=== PATIENT | female | born 1965 | race Hispanic/Latino ===

== ENCOUNTER 2023-01-17 11:19 | Observation (INO) | payer SELFPAY ==
[2023-01-17 12:17] LABS: #Basophils 0.1 thou/uL (0.0-0.2); #Eosinphils 0.2 thou/uL (0.0-0.7); #Monocytes 0.4 thou/uL (0.11-0.59); #Neutrophils 5.5 thou/uL (1.40-6.50); %Eosinophils 2.1 % (0.0-10.0); %Lymphocytes 23.9 % (21.0-51.0); %Monocytes 5.1 % (0.0-10.0); %Neutrophils 67.7 % (42.0-75.0); Hemoglobin 10.8 g/dL (12.0-16.0); Mean Corpuscular HGB CONC 34.8 g/dL (32.0-36.0); Mean Corpuscular Hemoglobin 27.1 pg (27.0-31.0); Mean Corpuscular Volume 77.9 fl (78.0-98.0); Mean Platelet Volume 10.6 fL (7.4-10.4); Platelet Count 286 10x3/uL (130-400); Red Blood Cell (RBC) Count 3.98 mill/uL (4.20-5.40); White Blood Cell (WBC) Count 8.2 10x3/uL (4.8-10.8)
[2023-01-17 12:48] LABS: Troponin I Less than 0.010 ng/mL (< 0.028)
[2023-01-17 12:51] LABS: ALT (SGPT) 14 U/L (8-55); AST (SGOT) 19 U/L (5-34); Albumin 3.4 g/dL (3.5-5.0); Alkaline Phosphatase 72 U/L (40-110); Anion Gap 13 mmol/L (10-20); BUN (Urea Nitrogen) 26 mg/dL (9.8-20.1); Bilirubin, Total 0.4 mg/dL (0.2-1.2); Calc. Creatinine Clearance 0 mL/min (70-130); Calcium 8.6 mg/dL (7.8-10.44); Carbon Dioxide 23 mmol/L (22-29); Chloride 109 mmol/L (98-107); Estimated GFR 51; Globulin 2.8 g/dL (2.4-3.5); Glucose 198 mg/dL (70-105); Lipase 16 U/L (8-78); Potassium 3.8 mmol/L (3.5-5.1); Protein, Total 6.2 g/dL (6.0-8.3); Sodium 141 mmol/L (136-145)
[2023-01-17] MEDS ORDERED: Amlodipine 5 MG TAB ONE (13:34)
[2023-01-17] MEDS ORDERED: Nitroglycerin 2% Ointment 1 INCH/1 GM Packet ONE (13:35)
[2023-01-17] MEDS ORDERED: hydrALAZINE 20 MG/ML VIAL ONE (13:35)
[2023-01-17] MEDS ORDERED: Aspirin Chewable 81 MG TAB ONE (13:35)
[2023-01-17] MEDS ORDERED: Dextrose 5% in Water 1,000 ML IV PRN (13:49)
[2023-01-17] MEDS ORDERED: Glucagon 1 MG/ML KIT IM PRN (13:49)
[2023-01-17] MEDS ORDERED: Dextrose 50% Abboject 50 ML SYRINGE SLOW IVP PRN (13:49)
[2023-01-17] MEDS ORDERED: HumaLOG 300 UNITS/3 ML VIAL SC PRN (13:49)
[2023-01-17] MEDS ORDERED: Ondansetron PF 4 MG/2 ML Vial IVP PRN (13:54)
[2023-01-17] MEDS ORDERED: Acetaminophen 325 MG TAB PO PRN (13:54)
[2023-01-17] MEDS ORDERED: Lisinopril 10 MG TAB PO SCH (14:00)
[2023-01-17] MEDS ORDERED: Lisinopril 10 MG TAB ONE (15:22)
[2023-01-17 15:29] LABS: Bacteria/HPF None Seen HPF (None Seen); Bilirubin Negative (Negative); Blood, Urine Negative (Negative); CAUTI Indications for Culture Pelvic or flank pain; Clarity Clear (Clear); Glucose, Urine (Dipstick) 150 mg/dL (Negative); Ketone, Urine Negative (Negative); Leukocyte Negative Leu/uL (Negative); Nitrite Negative (Negative); Protein, Urine (Dipstick) 300 mg/dL (Neg-Trace); RBC/HPF 0-3 HPF (0-3); Specific Gravity, Urine 1.011 (1.002-1.036); Squamous Epithelial 0-3 HPF (0-3); Urobilinogen Normal mg/dL (Less than 2); WBC/HPF 0-3 HPF (0-3)
[2023-01-17 15:31] LABS: Urine Culture Reflex No No
[2023-01-17 15:40] LABS: Troponin I Less than 0.010 ng/mL (< 0.028)
[2023-01-17] MEDS: Heparin 5,000 UNITS/ML VIAL SC SCH ×2 (16:25→21:27)
[2023-01-17 18:44] LABS: Troponin I Less than 0.010 ng/mL (< 0.028)
[2023-01-17 20:25] VITALS: BMI 23.8
[2023-01-17] MEDS ORDERED: Atorvastatin Calcium 40 MG TAB PO SCH (21:00)
[2023-01-17] MEDS: Metoprolol Tartrate 25 MG TAB PO SCH (21:27)
[2023-01-17] MEDS: Isosorbide Dinitrate 20 MG TAB PO SCH (21:27)
[2023-01-18 05:05] LABS: #Basophils 0.1 thou/uL (0.0-0.2); #Eosinphils 0.2 thou/uL (0.0-0.7); #Monocytes 0.5 thou/uL (0.11-0.59); #Neutrophils 4.8 thou/uL (1.40-6.50); %Eosinophils 2.5 % (0.0-10.0); %Lymphocytes 23.9 % (21.0-51.0); %Monocytes 6.3 % (0.0-10.0); Hematocrit 25.8 % (36.0-47.0); Hemoglobin 8.8 g/dL (12.0-16.0); Mean Corpuscular HGB CONC 34.1 g/dL (32.0-36.0); Mean Corpuscular Hemoglobin 26.4 pg (27.0-31.0); Mean Corpuscular Volume 77.5 fl (78.0-98.0); Mean Platelet Volume 10.9 fL (7.4-10.4); Platelet Count 257 10x3/uL (130-400); RBC Distribution Width 14.1 % (11.5-14.5); Red Blood Cell (RBC) Count 3.33 mill/uL (4.20-5.40); White Blood Cell (WBC) Count 7.3 10x3/uL (4.8-10.8)
[2023-01-18 05:14] LABS: Anion Gap 13 mmol/L (10-20); BUN (Urea Nitrogen) 29 mg/dL (9.8-20.1); Calc. Creatinine Clearance 44 mL/min (70-130); Carbon Dioxide 21 mmol/L (22-29); Chloride 112 mmol/L (98-107); Estimated GFR 46; Glucose 136 mg/dL (70-105); Potassium 3.4 mmol/L (3.5-5.1); Sodium 143 mmol/L (136-145)
[2023-01-18] MEDS ORDERED: Potassium Chloride 20 MEQ TAB PO SCH (08:45)
[2023-01-18] MEDS ORDERED: Amlodipine 10 MG TAB PO SCH (09:00)
[2023-01-18] MEDS ORDERED: Lisinopril 10 MG TAB PO SCH (09:00)
[2023-01-18] MEDS ORDERED: Aspirin 81 mg Enteric Coated Tablet PO SCH (09:00)
[2023-01-18] MEDS ORDERED: ADENOSINE 60 MG/20 ML SDV ONE (10:27)
[2023-01-18] MEDS: Furosemide 20 MG TAB PO SCH ×2 (14:08→14:49)
[2023-01-18] MEDS: Isosorbide Dinitrate 20 MG TAB PO SCH (14:08)
[2023-01-18] MEDS: Heparin 5,000 UNITS/ML VIAL SC SCH ×2 (14:09→14:49)
[2023-01-18 16:47] VITALS: BP 165/72; TEMP 98.7
[2023-01-18] MEDS: Metoprolol Tartrate 25 MG TAB PO SCH (17:20)
[2023-01-20] MEDS ORDERED: FLU VACC QS2023-24(6MOS UP)/PF 60 MCG/0.5 ML SYRINGE IM ONE (09:00)
== END 2023-01-18 18:21 | disposition home or self-care (01) ==
LOC: ERS 11:19 → ERHOLD 13:38 → 2NO 17:57
PROVIDERS: ADMIT Internal Medicine; ATTEND Internal Medicine
DX: R07.9 Chest pain, unspecified (principal); I16.1 Hypertensive emergency; I11.0 Hypertensive heart disease with heart failure; I50.811 Acute right heart failure; I08.1 Rheumatic disorders of both mitral and tricuspid valves; E11.9 Type 2 diabetes mellitus without complications; Z88.0 Allergy status to penicillin; Z79.84 Long term (current) use of oral hypoglycemic drugs
CPT/HCPCS: 36415; 36416; 70450; 71045; 78452; 80048; 80053; 81001; 83690; 83880; 84484; 85025; 93005; 93017; 93306; 96372; 96374; A9502; G0378; J0153; J0360; J1644